=== PATIENT | female | born 1940 | race Caucasian/White ===

== ENCOUNTER 2018-02-24 19:30 | Inpatient (IN) | payer MEDICARE, MEDICAID ==
[2018-02-24 22:18] VITALS: BP 135/66
[2018-02-25] MEDS ORDERED: Levothyroxine 0.1 Mg Tab PO SCH (09:00)
[2018-02-25] MEDS ORDERED: METOPROLOL SUCCINATE PO SCH (09:00)
[2018-02-25] MEDS ORDERED: Aspirin 81mg Chewable Tab PO SCH (09:00)
[2018-02-25] MEDS ORDERED: [UNRECOGNIZED DRUG - OTHER] PO SCH (09:00)
[2018-02-25] MEDS ORDERED: SAXAGLIPTIN PO SCH (09:00)
[2018-02-25] MEDS ORDERED: RALOXIFENE HCL PO SCH (09:00)
[2018-02-25] MEDS ORDERED: OMEPRAZOLE PO SCH (09:00)
[2018-02-25] MEDS ORDERED: Multivitamin Tab PO SCH (09:00)
[2018-02-25] MEDS: INSULIN ASPART SLIDING SCALE 100 UNITS/ML UNIT SUBQ SCH ×2 (12:36→20:51)
--- NOTE | 2018-02-25 12:40 | History & Physical ---
ADMIT DATE: 02/25/2018 PATIENT'S ID: A 77-year-old female. REQUESTING PHYSICIAN: Dr. Sung. CHIEF COMPLAINT: "I want to go home." HISTORY OF PRESENT ILLNESS: A 77-year-old [place] female who resides at [place] by herself, has a diabetes, hypertension, hyperlipidemia, peripheral neuropathy, DJD, also has a history of depression, presented to Emergency Room at [facility] for insomnia and feeling depressed and hopeless. The patient was placed on hold and the patient is now transferred to Geropsych Unit for further care. Echo upon reviewing the patient's history, the patient has been followed by primary care [facility], Dr. Hayes. According to the patient, she has been followed by him, but she was not given any antidepression medicine. PAST MEDICAL HISTORY: Remarkable for: 1. Diabetes. 2. Hypertension. 3. Hyperlipidemia. 4. DJD. 5. Peripheral neuropathy. MEDICATIONS AT HOME: Aspirin, Benadryl, gabapentin, glipizide, metformin along with levothyroxine, losartan, metoprolol, Onglyza. ALLERGIES: The patient is not allergic to medication. SOCIAL HISTORY: The patient lives in [place]. No history of smoking cigarette, alcohol, or drug use. FAMILY MEDICAL HISTORY: Remarkable for diabetes mellitus. PAST SURGICAL HISTORY: Remarkable for cholecystectomy and hysterectomy. REVIEW OF SYSTEMS: The patient denies any headache, blurred vision, double vision, dysphagia, odynophagia, runny nose, stuffy nose, fever, chills, cough, chest pain, shortness of breath, palpitation, dizziness, nausea, vomiting, diarrhea, dysuria, hematuria, hematochezia, melena, no seizure or syncopal episode. PHYSICAL EXAMINATION: GENERAL: The patient is alert, awake, oriented, lying in the bed. VITAL SIGNS: Temperature 98, pulse is 99, respiratory rate is 18, blood pressure 165/85. HEENT: Normocephalic, atraumatic. Extraocular muscles are intact. Tongue was pink and coated. Poor dentition noted. No oral lesion, no exudate. No sinus tenderness. External recurrent movements are well visualized. NECK: Supple, no JVD, no hepatojugular reflex. No lymphadenopathy, thyromegaly, or carotid bruit. HEART: Both heart sounds are regular. No S3, no S4, no murmur. CHEST: Lung equal in expansion, no wheezing, no crackles. ABDOMEN: Soft. No guarding, no rigidity. Bowel sounds are present. No palpable mass. EXTREMITIES: No edema, no cyanosis, no clubbing. Peripheral pulses +2. No calf tenderness noted. GENITOURINARY: External genitalia, rectal examination, and breast examination not done as per the patient's request. NEUROLOGIC: Alert, awake, oriented to time, place, person. A 2-12 cranial nerves are intact. Power in upper and lower extremities 5+. Sensation to touch intact. Babinski, both toes are down. No cerebral sign. AVAILABLE DIAGNOSTIC DATA: Performed at [facility] has been reviewed. Total time reviewing the record is approximately 7 minutes. CLINICAL IMPRESSION: 1. Diabetes mellitus. 2. Hypertension. 3. Hyperlipidemia. 4. Hypothyroidism. 5. Degenerative joint disease. 6. Peripheral neuropathy. 7. Psychotic disorder exacerbation. PLAN: 1. Psychotic evaluation and management deferred to psychiatrist. 2. The patient will be placed on Glucoscan a.c. and at bedtime with covering the blood through sliding scale NovoLog insulin. Resume the patient's metformin, glipizide, and Januvia for now. Since, Onglyza is not a formulary. Continue Synthroid for her hypothyroidism. Hold her Premarin for now. The patient has no signs or symptoms of urinary tract infection. The patient will not be given any antibiotic for now. The patient will be followed by us during her stay in the hospital. Care plan has been reviewed and discussed with staff. JOB# [id number]
--- NOTE | 2018-02-25 18:10 | Psychosocial Evaluation ---
DATE OF SERVICE: 02/25/2018 JUSTIFICATION FOR HOSPITALIZATION: 5150 hold, danger to self, suicidal intent and plan to overdose. CHIEF COMPLAINT: " I am very depressed." HISTORY OF PRESENT ILLNESS: A 77-year-old female, severely depressed, hopeless brought in on a hold, suicidal, wanted to kill self hurt self. Apparently overdosed in the past, lonely at home, very isolated, erratic sleep, fair appetite, had been endorsing psychological distress, turmoil, hopeless and helpless thoughts. PAST PSYCHIATRIC HISTORY: Denies ever being in a psychiatric hospital before. FAMILY HISTORY: Noncontributory. SOCIAL HISTORY: Living in [place], living alone in her home. , 2 sons. No involvement with the sons. Does not give me permission to call her sons. MEDICAL HISTORY: Noted. MENTAL STATUS EXAMINATION: Stated age. Fair eye contact. Speech within normal limits. Mood depressed. Affect withdrawn. Thought processes were linear. The patient had been endorsing SI, no HI. No psychotic symptoms. Insight and judgment diminished. She wants to leave. PROVISIONAL DIAGNOSES: Major depression, recurrent, severe, no psychosis. Also, anxiety, unspecified. MEDICAL: Please see full H and P. ASSESSMENT: The patient requiring inpatient hospitalization, suicidal, not taryn for safety concerns about a suicide effort thoughts to overdose. PLAN: We will continue to monitor. Consider adding an antidepressant to her medication regimen. TREATMENT PLAN: Includes group as well as milieu therapy. CONDITIONS FOR DISCHARGE: Improved mood, improved affect, cessation of any SI, better coping. The patient may also benefit from a day program PHP/IOP. [facility]# [id number]
[2018-02-26] MEDS: INSULIN ASPART SLIDING SCALE 100 UNITS/ML UNIT SUBQ SCH ×4 (08:00→20:29)
[2018-02-26] MEDS: Pantoprazole 40 mg EC Tab PO SCH (09:20)
[2018-02-26] MEDS: Levothyroxine 0.1 Mg Tab PO SCH (09:49)
--- NOTE | 2018-02-26 14:26 | Progress Notes ---
DATE: 02/26/2018 A 77-year-old female with severe depression, hopeless thought and suicidal. The patient tried to hurt herself 5 months ago, was hospitalized, continues to express suicidal ideations, so she was put on another 5150 hold. The patient lonely, depressed, but she is fixated on leaving, wants to leave, does not understand why she is here, although I took some time to explain to her my concerns and my worries about her recent suicide effort and her ongoing symptoms. SOCIAL HISTORY: Living in [place]. She does have kids, but she does not want them to really be involved. MENTAL STATUS EXAMINATION: Stated age. Fair eye contact. Speech within normal limits. Mood "okay." Affect withdrawn. Mildly tearful. Minimizing any SI. No psychotic symptoms. PLAN: We will continue to monitor. I did initiate low dose Lexapro. We will continue to monitor. I do have ongoing safety concerns. Continue 72-hour hold. [facility]# [id number]
[2018-02-26] MEDS: Escitalopram Oxalate 5 mg Tab PO SCH ×2 (20:29→21:52)
--- NOTE | 2018-02-26 22:05 | Progress Notes ---
DATE: 02/26/2018 SUBJECTIVE: The patient seen and examined. The patient is lying in the bed. No new event. PHYSICAL EXAMINATION: VITAL SIGNS: Temperature 96.8, pulse 100, respiratory rate 18, blood pressure 147/72. HEENT: No facial asymmetry. NECK: Supple. No JVD. HEART: Regular. CHEST: Equal in expansion. No wheezing. No crackles. ABDOMEN: Soft. No guarding, no rigidity. Bowel sounds are present. No palpable mass. EXTREMITIES: No edema. CLINICAL IMPRESSION: 1. Diabetes. 2. Hypertension. 3. Hyperlipidemia. 4. Hypothyroidism. 5. Degenerative joint disease. 6. Peripheral neuropathy. 7. Psychotic disorder exacerbation. PLAN: 1. Oral hypoglycemic agent. 2. Glucoscan a.c. and at bedtime. 3. Antihypertensive medicine. 4. Monitor blood pressure. 5. Statin. 6. Synthroid. 7. Psych medication. 8. Continue gabapentin. 9. Fall precautions. 10. General nursing care. 11. The patient is stable for psychiatric treatment at [facility]. JOB# [id number]
[2018-02-27] MEDS: Levothyroxine 0.1 Mg Tab PO SCH (06:35)
[2018-02-27] MEDS: INSULIN ASPART SLIDING SCALE 100 UNITS/ML UNIT SUBQ SCH ×4 (06:36→20:51)
[2018-02-27] MEDS: Pantoprazole 40 mg EC Tab PO SCH (08:44)
--- NOTE | 2018-02-27 15:39 | Progress Notes ---
DATE: 02/27/2018 The patient is in the hospital, depressed, hopeless, recent suicide effort, ongoing suicidal thoughts, severe depression, fixated on leaving, minimizing her thoughts at this time noting that any thoughts of self-harm are dissipating and decreasing. She is motivated to get better. Recent initiation of an antidepressant. Sister involved. Whiskey Regauger involved. She does not want her kids involved. ASSESSMENT: The patient remains symptomatic with insomnia, still fixated on leaving but depressed, ongoing safety concerns. PLAN: We will continue to monitor. Continue Lexapro. Monitor closely for any side effects. JOB# [id number]
[2018-02-27] MEDS: Escitalopram Oxalate 5 mg Tab PO SCH (20:49)
[2018-02-28] MEDS: INSULIN ASPART SLIDING SCALE 100 UNITS/ML UNIT SUBQ SCH ×4 (06:37→20:48)
[2018-02-28] MEDS: Levothyroxine 0.1 Mg Tab PO SCH (06:39)
[2018-02-28] MEDS: Pantoprazole 40 mg EC Tab PO SCH (08:55)
[2018-02-28] MEDS: Escitalopram Oxalate 5 mg Tab PO SCH (20:39)
--- NOTE | 2018-03-01 02:21 | Progress Notes ---
DATE: 02/28/[address] De La Rosa. Case was discussed with staff of the patient, reviewed records. This is a 77-year-old female who was admitted on 02/24/2018 because of feeling depressed, hopeless, wanted to kill herself, overdose in the past, feeling lonely at home, very isolated, erratic sleep, had been endorsing, psychological distress, hopeless. No prior hospitalization. She live alone in her home, , 2 sons, no involvement with her son that make her very depressed. She continues to be depressed, overwhelmed. She was started on Aricept 5 mg at bedtime with no side effects, no sedation, no nausea. I will be increasing her Lexapro to 10 mg a day to help with her depression. We will continue to work with the patient in group therapy, milieu therapy, and adjust the medications as needed. [facility]# [id number]
[2018-03-01] MEDS: INSULIN ASPART SLIDING SCALE 100 UNITS/ML UNIT SUBQ SCH ×4 (06:34→20:13)
[2018-03-01] MEDS: Levothyroxine 0.1 Mg Tab PO SCH (06:35)
[2018-03-01] MEDS: Pantoprazole 40 mg EC Tab PO SCH (09:42)
[2018-03-01] MEDS: Maalox 30 mL Cup PO PRN (13:39)
[2018-03-01] MEDS: Escitalopram Oxalate 5 mg Tab PO SCH (20:26)
--- NOTE | 2018-03-02 02:19 | Progress Notes ---
DATE: 03/01/2018 Case discussed with staff of the patient. The patient continues to be depressed. Continues to have ____. She wants to harm herself with a history of overdose in the past. She has been feeling lonely at home, isolating herself. Her sons are not engaging with her and that has been very depressing. Continues to be depressed, overwhelmed. She has been compliant with the medication with no side effects and I increased Lexapro dose yesterday to 10 mg a day with no side effects, no sedation, no nausea and we will continue outpatient group therapy, milieu therapy, and adjust medications. JOB# [id number]
[2018-03-02] MEDS: Levothyroxine 0.1 Mg Tab PO SCH (06:37)
[2018-03-02] MEDS: INSULIN ASPART SLIDING SCALE 100 UNITS/ML UNIT SUBQ SCH ×5 (06:38→21:38)
[2018-03-02] MEDS: Pantoprazole 40 mg EC Tab PO SCH (08:48)
[2018-03-02] MEDS: Maalox 30 mL Cup PO PRN (11:17)
--- NOTE | 2018-03-02 16:25 | Discharge Summary ---
DATE OF DISCHARGE: 03/02/2018 DATE OF DISCHARGE: 03/02/2018. JUSTIFICATION FOR HOSPITALIZATION: Depression, 5150 hold, suicidal thoughts. HISTORY OF PRESENT ILLNESS: A 77-year-old female, depressed, hopeless, isolative, lonely, wanted to hurt herself, history of overdosing on medications about half a year ago, isolating more, psychological distress, turmoil hopeless thoughts. PAST PSYCHIATRIC HISTORY: An overdose effort many months ago. Never hospitalized. SOCIAL HISTORY: Living in [place], living alone in her room. . She has 2 sons. She has a chief drafter who is pretty involved. Sister also very involved. MENTAL STATUS EXAMINATION: Stated age. Fair eye contact. Please see full psych eval for details. PROVISIONAL DIAGNOSES: Major depression, recurrent, severe, no psychosis. Also, anxiety, unspecified. MEDICAL: Please see full H and P. HOSPITAL COURSE: After initial assessment, the patient was motivated for treatment. Motivated to start an antidepressant medication, Lexapro was initiated. Over the course of the hospitalization, her mood improved, affect improved. Lexapro was titrated. She was noting more hope, more optimism, good ADLs, good eye contact, sociable and engaged, sleeping well. Toward the latter end of her hospitalization, she was motivated to increase her socialization noting that she felt clinical much better, noting that she wanted more hours from chief drafter and was discharged no longer meeting any criteria for inpatient. CONDITION UPON DISCHARGE: Improved, better ADLs, good eye contact. Speech within normal limits. Mood "much better, I feel better." Affect broad. Thought processes were linear. No SI, no HI, no intent, no plan. No overt psychotic symptoms. Insight and judgment robustly improved. The patient hopeful, more motivated, more optimistic, denying any psychological distress, no turmoil. DISCHARGE DIAGNOSES: Major depression, recurrent, severe, no psychosis. MEDICAL: Please see full H and P. PROGNOSIS: The patient follows up with outpatient mental services and remains compliant with treatment. Prognosis will improve, otherwise guarded. [facility]# [id number]
[2018-03-02] MEDS: Escitalopram Oxalate 5 mg Tab PO SCH (21:35)
--- NOTE | 2018-03-02 22:05 | Progress Notes ---
DATE: 03/02/2018 SUBJECTIVE: The patient seen and examined. The patient is sitting in the chair for further questioning. Denies any chest pain, shortness of breath, palpitation, dizziness, nausea, vomiting, diarrhea. Discussed with nursing staff about the care plan. PHYSICAL EXAMINATION: VITAL SIGNS: Temperature 97, pulse is 64, respiratory rate is 18, blood pressure 144/68. HEENT: No facial asymmetry. Poor dentition noted. NECK: Supple. No JVD or lymphadenopathy. HEART: Regular, no murmur. CHEST: Lung equal in expansion. LUNGS: No wheezing, no crackles. ABDOMEN: Soft. No guarding, no rigidity. Bowel sounds are present. No palpable mass. EXTREMITIES: No edema. CLINICAL IMPRESSION: 1. Diabetes. 2. Hypertension. 3. Hyperlipidemia. 4. Hypothyroidism. 5. Degenerative joint disease. 6. Peripheral neuropathy. 7. Psychotic disorder. PLAN: 1. Monitor blood sugar. 2. Oral hypoglycemic agent. 3. Antihypertensive medicine. 4. Statin. 5. Synthroid. 6. Neurontin. 7. Psych followup. 8. General nursing care. 9. Fall precautions. 10. We will follow this patient during the stay. JOB# [id number]
[2018-03-03] MEDS: INSULIN ASPART SLIDING SCALE 100 UNITS/ML UNIT SUBQ SCH (06:37)
[2018-03-03] MEDS: Levothyroxine 0.1 Mg Tab PO SCH (06:38)
[2018-03-03] MEDS: Pantoprazole 40 mg EC Tab PO SCH (09:48)
--- NOTE | 2018-03-03 23:05 | Progress Notes ---
DATE: 03/03/2018 The patient was discharged on 03/03/2018. The original discharge was set for 03/02/2018, but due to the involvement of APS, Adult Protective Services. We need to confirm that the patient would be getting more home health services hours. This took approximately 24 hours, it was accomplished. The patient was discharged therefore on 03/03/2018. Linear engaged, no SI, no HI, no intent, no plan. No psychotic symptoms. Mood "better." Affect brighter. No behavioral disturbances. JOB# [id number]
== END 2018-03-03 11:15 | disposition home or self-care (01) | DRG 885 ==
LOC: GERO2 19:30
PROVIDERS: ADMIT Psychiatry & Neurology Psychiatry; ATTEND Psychiatry & Neurology Psychiatry
DX: F33.2 Major depressive disorder, recurrent severe without psychotic features (principal); F41.9 Anxiety disorder, unspecified; I10 Essential (primary) hypertension; E78.5 Hyperlipidemia, unspecified; E03.9 Hypothyroidism, unspecified; M19.90 Unspecified osteoarthritis, unspecified site; E11.42 Type 2 diabetes mellitus with diabetic polyneuropathy; G47.00 Insomnia, unspecified; Z60.2 Problems related to living alone; Z90.49 Acquired absence of other specified parts of digestive tract; Z90.710 Acquired absence of both cervix and uterus
CPT/HCPCS: J1815; Z7610